=== PATIENT | female | born 1965 | race Caucasian/White ===

== ENCOUNTER 2017-10-29 04:15 | Emergency (ER) | payer BC, OTHER ==
[~2017-10-29] VITALS: Ht 165.1 cm; Wt 58.2 kg
[2017-10-29] MEDS ORDERED: ULTRAM50 MG PO (04:37)
[2017-10-29] MEDS ORDERED: CLEOCIN300 MG PO (04:37)
[2017-10-29 06:00] VITALS: BP 159/98
== END 2017-10-29 06:00 | disposition home or self-care (01) ==
LOC: EME 04:15
DX: K04.7 Periapical abscess without sinus (principal); K21.9 Gastro-esophageal reflux disease without esophagitis; F17.200 Nicotine dependence, unspecified, uncomplicated
CPT/HCPCS: 99281; 99284